=== PATIENT | female | born 1955 | race Hispanic/Latino ===

== ENCOUNTER 2017-03-25 03:16 | Emergency (ER) | payer MEDICARE, OTHER ==
[2017-03-25] MEDS ORDERED: ATIVAN IV ONE (03:53)
[2017-03-25] MEDS ORDERED: ZOFRAN IV ONE (03:53)
[2017-03-25] MEDS ORDERED: NACL 0.9% 500 ML 500 ML IV ONE (03:53)
--- NOTE | 2017-03-25 03:55 | Emergency Department Report ---
ED General Adult HPI - General Chief complaint: Weakness Stated complaint: GENERAL WEAKNESS Time Seen by Provider: 03/25/17 03:44 Source: patient, EMS (ems notes not available at time of chart dictation), RN notes reviewed Mode of arrival: Stretcher Limitations: No Limitations - History of Present Illness Initial comments: This is a 61-year-old female. The patient is previously unknown to this provider. Past medical history includes GERD, bipolar, hypothyroid, high cholesterol, anxiety. Patient is brought to the hospital by EMS for weakness, fatigue, generalized weakness. Her symptoms have been going on since January. They are constant. They have no exacerbating or relieving factors. Patient complains of generalized tremors, these have been present for years, patient describes nausea , patient describes lack of appetite and does not want to eat. The patient is not homicidal or suicidal, does not have a plan to overdose. The patient is requesting apple juice and ice chips, patient denies chest pain, patient denies severe shortness of breath, patient denies focal extremity weakness/numbness. Patient endorses that she's had a few mechanical falls over the past few weeks. She reports falling a few go, and hitting her head. -: Gradual Consistency: constant Improves with: none Worsens with: none Associated Symptoms: loss of appetite, malaise, weakness. denies: confusion, chest pain, cough, diaphoresis - Related Data Previous Rx's Medication Instructions Recorded Last Taken Type Ondansetron [Zofran Odt] 4 mg PO Q8HR PRN #20 tab.rapdis 03/25/17 Unknown Rx Allergies Allergy/AdvReac Type Severity Reaction Status Date / Time Penicillins Allergy Unknown Verified 03/25/17 04:00 ED Review of Systems ROS: Stated complaint: GENERAL WEAKNESS Other details as noted in HPI Constitutional: malaise, weakness Eyes: eye discharge. denies: eye pain, vision change ENT: denies: congestion Respiratory: denies: cough Cardiovascular: denies: chest pain Gastrointestinal: vomiting Genitourinary: as per HPI. denies: dysuria Musculoskeletal: arthralgia, myalgia Neurological: weakness Psychiatric: denies: homicidal thoughts, suicidal thoughts ED Past Medical Hx - Medications Home Medications: Home Medications Medication Instructions Recorded Confirmed Last Taken Type Ondansetron [Zofran Odt] 4 mg PO Q8HR PRN #20 tab.rapdis 03/25/17 Unknown Rx ED Physical Exam - General Limitations: Other (patient is very anxious) General appearance: alert, in distress - Head Head exam: Present: atraumatic, normocephalic - Eye Eye exam: Present: normal appearance, PERRL, EOMI, conjunctival injection ( patient has conjunctival discharge noted. Patient reports that it has been there for months.), other (visual acuity intact to finger counting, color perception, reading at a close distance). Absent: nystagmus - ENT ENT exam: Present: normal exam, normal orophraynx, mucous membranes moist, normal external ear exam - Neck Neck exam: Present: normal inspection, full ROM - Respiratory Respiratory exam: Present: normal lung sounds bilaterally. Absent: respiratory distress - Cardiovascular Cardiovascular Exam: Present: normal rhythm, tachycardia, normal heart sounds. Absent: systolic murmur, diastolic murmur, rubs, gallop - GI/Abdominal GI/Abdominal exam: Present: soft, normal bowel sounds. Absent: distended, tenderness, guarding, rebound, rigid, pulsatile mass - Extremities Exam Extremities exam: Present: normal inspection, full ROM, normal capillary refill. Absent: pedal edema, joint swelling, calf tenderness - Back Exam Back exam: Present: normal inspection, full ROM. Absent: tenderness, CVA tenderness (R), paraspinal tenderness, vertebral tenderness - Neurological Exam Neurological exam: Present: alert, oriented X3, CN II-XII intact, other ( Extraocular movements intact. Tongue midline. No facial droop. Facial sensation intact to light touch in the V1, V2, V3 distribution bilaterally. 5 and 5 strength in 4 extremities.. Sensation is intact to light touch in 4 extremities.). Absent: motor sensory deficit - Psychiatric Psychiatric exam: Present: anxious. Absent: homicidal ideation, suicidal ideation - Skin Skin exam: Present: warm, dry, intact, normal color. Absent: rash ED Course Vital Signs 03/25/17 03/25/17 03:45 04:00 Temperature 98.3 F Pulse Rate 100 H 88 Respiratory 18 13 Rate Blood Pressure 172/100 134/83 O2 Sat by Pulse 95 97 Oximetry - Reevaluation(s) Reevaluation #1: 03/25/17 04:32 Differential diagnosis, including without limited to: Anxiety, dehydration, urinary tract infection, intracranial injury, electrolyte derangement Assessment and plan: 61-year-old female who reports a few weeks to a few months of nonspecific constitutional symptoms. Objectively speaking, the patient is afebrile, slightly hypertensive, has a nonfocal neurologic examination, has chronic tremors as per history, and does not require 1013 based on her evaluation. We will check basic laboratory studies, EKG, urinalysis, x-ray of the chest, noncontrast CT scan of the brain based on past history of fall. We'll reassess. Reevaluation #2: 03/25/17 05:43 Patient tolerated liquid feeds. Laboratory studies pending. Radiology studies pending. Care will be transferred to the oncoming physician, Dr. Jhon Sagastume to follow-up on patient's laboratory studies, diagnostics. Assuming no abnormalities noted, I would consider the patient medically suitable to be discharged to follow-up in outpatient primary care doctor. Reevaluation #3: 03/26/17 13:41 Laboratory studies reviewed and are unremarkable for any emergent condition, patient found to have incidental thyroid abnormalities, and this can be followed up by an outpatient primary care doctor. Noncontrast CT scan of the brain demonstrated incidental findings, likely chronic in nature. Patient is suitable to follow up with outpatient primary care, and she was discharged as per my plan. ED Medical Decision Making - Lab Data Result diagrams: 03/25/17 05:07 03/25/17 05:07 Vital Signs 03/25/17 03:45 Temperature 98.3 F Pulse Rate 100 H Respiratory 18 Rate Blood Pressure 172/100 O2 Sat by Pulse 95 Oximetry Vital Signs 03/25/17 03/25/17 03:45 04:00 Temperature 98.3 F Pulse Rate 100 H 88 Respiratory 18 13 Rate Blood Pressure 172/100 134/83 O2 Sat by Pulse 95 97 Oximetry Labs 03/25/17 03/25/17 03/25/17 04:48 05:07 05:07 WBC 9.5 RBC 4.46 Hgb 13.9 Hct 40.9 MCV 92 MCH 31 MCHC 34 RDW 14.9 Plt Count 205 Sodium 138 Potassium 3.5 L Chloride 101.0 Carbon Dioxide 21 L Anion Gap 20 BUN 13 Creatinine 1.0 Estimated GFR 56 BUN/Creatinine Ratio 13 Glucose 94 Calcium 8.3 L Magnesium 1.80 Total Creatine Kinase 185 H TSH Free T4 Urine Color Yellow Urine Turbidity Clear Urine pH 5.0 Ur Specific [place] 1.006 Urine Protein <15 mg/dl Urine Glucose (UA) Neg Urine Ketones Neg Urine Blood Sm Urine Nitrite Neg Urine Bilirubin Neg Urine Urobilinogen < 2.0 Ur Leukocyte Esterase Neg Urine WBC (Auto) 1.0 Urine RBC (Auto) 2.0 U Epithel Cells (Auto) < 1.0 Urine Mucus Few Salicylates Acetaminophen Valproic Acid 03/25/17 03/25/17 03/25/17 05:07 05:07 05:07 WBC RBC Hgb Hct MCV MCH MCHC RDW Plt Count Sodium Potassium Chloride Carbon Dioxide Anion Gap BUN Creatinine Estimated GFR BUN/Creatinine Ratio Glucose Calcium Magnesium Total Creatine Kinase TSH 6.360 H Free T4 1.45 Urine Color Urine Turbidity Urine pH Ur Specific [place] Urine Protein Urine Glucose (UA) Urine Ketones Urine Blood Urine Nitrite Urine Bilirubin Urine Urobilinogen Ur Leukocyte Esterase Urine WBC (Auto) Urine RBC (Auto) U Epithel Cells (Auto) Urine Mucus Salicylates < 0.3 L Acetaminophen Valproic Acid < 2.8 L 03/25/17 05:07 WBC RBC Hgb Hct MCV MCH MCHC RDW Plt Count Sodium Potassium Chloride Carbon Dioxide Anion Gap BUN Creatinine Estimated GFR BUN/Creatinine Ratio Glucose Calcium Magnesium Total Creatine Kinase TSH Free T4 Urine Color Urine Turbidity Urine pH Ur Specific [place] Urine Protein Urine Glucose (UA) Urine Ketones Urine Blood Urine Nitrite Urine Bilirubin Urine Urobilinogen Ur Leukocyte Esterase Urine WBC (Auto) Urine RBC (Auto) U Epithel Cells (Auto) Urine Mucus Salicylates Acetaminophen < 15.0 Valproic Acid - EKG Data 03/25/17 04:33 Normal sinus, 88 bpm, normal axis, QTC prolonged, 455 ms, abnormal EKG, not morphologically consistent with ST elevation myocardial infarction - Radiology Data Radiology results: pending, report reviewed, image reviewed Critical care attestation.: If time is entered above; I have spent that time in minutes in the direct care of this critically ill patient, excluding procedure time. ED Disposition Clinical Impression: General medical exam Disposition: [id number] TO HOME OR SELFCARE Is pt being admited?: No Does the pt Need Aspirin: No Condition: Good Additional Instructions: Follow-up with the primary care doctor within the next week. Follow-up with your psychiatrist within the next week. Return to the ER right away with fevers , chills, lethargy, irritability, projectile vomiting, change in mental status, inability to tolerate liquid feeds. Follow up with any of the listed neurology specialist within the next month as well for chronic upper extremity tremors. Prescriptions: Ondansetron [Zofran Odt] 4 mg PO Q8HR PRN #20 tab.rapdis PRN Reason: Nausea Referrals: KRISTINE HUANG MD [Primary Care Provider] - 3-5 Days RA LEMON MD [Staff Physician] - 3-5 Days SIMIN MAY MD [Staff Physician] - 3-5 Days BUSTER ZHANG MD [Referring] - 3-5 Days
[2017-03-25 05:17] LABS: Bilirubin,Urine NEG (Negative); Blood,Urine SM (Negative); Color,Urine Yellow (Yellow); Mucus,Urine FEW /HPF; Nitrite,Urine NEG (Negative); Protein,Urine <15 mg/dL mg/dL (Negative); Urobilinogen,Urine < 2.0 mg/dL (<2.0)
[2017-03-25 05:21] VITALS: BP 134/83
[2017-03-25 05:51] LABS: Hematocrit 40.9 % (30.3-42.9); Hemoglobin 13.9 gm/dl (10.1-14.3); Mean Corpuscular HGB Conc 34 % (30-34); Mean Corpuscular Hemoglobin 31 pg (28-32); Mean Corpuscular Volume 92 fl (79-97); Platelet Count 205 K/mm3 (140-440); Red Blood Count 4.46 M/mm3 (3.65-5.03); Red Cell Distribution Width 14.9 % (13.2-15.2)
[2017-03-25 06:10] LABS: Calcium 8.3 mg/dL (8.4-10.2); Magnesium 1.8 mg/dL (1.7-2.3)
--- NOTE | 2017-03-25 06:10 | Cat Scan Report ---
FINAL REPORT EXAM: CT HEAD/BRAIN WO CON HISTORY: fall TECHNIQUE: CT imaging is acquired through the brain without contrast. Transaxial reformations are provided. PRIORS: None. FINDINGS: Ventricles and CSF spaces are proportionately enlarged, consistent with parenchymal atrophy. Scattered deep and subcortical white matter hypodense foci are confluent in some areas and are compatible with microvascular angiopathy. No acute intracranial hemorrhage or mass effect. No acute skull fracture identified. There is dense sclerotic and ground-glass expansion of the skullbase extending throughout large portions of the right frontal, parietal and temporal bones. No acute findings in the paranasal sinuses or mastoid air cells. IMPRESSION: No acute intracranial abnormality. There are chronic sequela of atrophy and microvascular angiopathy. Chronic dense sclerotic and "ground-glass" expansion of the skullbase may be secondary to fibrous dysplasia, Paget's disease, or metastatic disease. Clinical correlation is requested. Consider routine follow-up skeletal survey if these findings have not been previously documented.
--- NOTE | 2017-03-25 06:32 | Emergency Department Report ---
Blank Doc - Documentation Documentation: I was asked by my colleague to follow up on the patient's CT head results and the labs with the plan that if everything is normal that she is safe to go home and discharge instructions and Zofran ODT have been written for her. Labs are unremarkable. CT of the head does not show any bleed, shift, mass, ischemia. There are some osseous abnormalities in the posterior skull that include a differential of fibrous dysplasia, Paget's disease of the bone or metastasis, among others. 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 She is aware of these incidental findings and will follow up with her primary care doctor as soon as possible. She will return to the ER with any worsening of her symptoms or any acute distress.
== END 2017-03-25 07:04 | disposition home or self-care (01) ==
LOC: ED 03:16
DX: R53.1 Weakness (principal); R53.83 Other fatigue; R63.0 Anorexia; Z88.0 Allergy status to penicillin
CPT/HCPCS: 36415; 70450; 80048; 80164; 81001; 82550; 83735; 84439; 84443; 85027; 93005; 93010; 96374; 96375; 99284; G0480; J2060; J2405; J7040; 80320

== ENCOUNTER 2017-04-26 05:39 | Emergency (ER) | payer MEDICARE ==
[2017-04-26 08:31] LABS: Hematocrit 47.3 % (30.3-42.9); Hemoglobin 15.9 gm/dl (10.1-14.3); Mean Corpuscular HGB Conc 34 % (30-34); Mean Corpuscular Hemoglobin 32 pg (28-32); Mean Corpuscular Volume 94 fl (79-97); Platelet Count 177 K/mm3 (140-440); Red Blood Count 5.03 M/mm3 (3.65-5.03); Red Cell Distribution Width 15.2 % (13.2-15.2)
[2017-04-26 08:50] LABS: Albumin 4.4 g/dL (3.9-5); Calcium 8.9 mg/dL (8.4-10.2)
[2017-04-26 08:57] LABS: Bacteria,Urine 1+ /HPF (Negative); Bilirubin,Urine NEG (Negative); Blood,Urine MOD (Negative); Color,Urine Amber (Yellow); Mucus,Urine 2+ /HPF; Nitrite,Urine POS (Negative)
[2017-04-26 10:16] LABS: Anisocytosis Few; Band Neutrophils # (Manual) 0.4 K/mm3; Basophils % (Manual) 0 % (0.0-1.8); Eosinophils % (Manual) 0 % (0.0-4.3); Total Cells Counted 100
[2017-04-26] MEDS ORDERED: ZOFRAN IV ONE (13:18)
[2017-04-26] MEDS ORDERED: NACL 0.9% 1000 ML 1,000 ML IV ONE (13:18)
[2017-04-26] MEDS ORDERED: MORPHINE IV ONE (13:18)
--- NOTE | 2017-04-26 13:41 | Emergency Department Report ---
HPI - General Chief Complaint: Headache Time Seen by Provider: 04/26/17 13:05 - HPI HPI: [place] 7 The patient is a 61-year-old female presenting with a chief complaint of headache. Patient states for one day she's had a headache until region in addition to frequent nausea and vomiting. The patient states earlier today she had an episode of epistaxis. Patient denies any preceding trauma or fever. The patient gives her pain a score of 7/10. 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 - Surgical History Past Surgical History?: Yes Additional Surgical History: back, right hip, right arm, brain - Family History Family history: no significant - Social History Smoking Status: Current Every Day Smoker (1/2 pack per day) Substance Use Type: Alcohol (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), Prescribed - Medications Home Medications: Home Medications Medication Instructions Recorded Confirmed Last Taken Type Ondansetron [Zofran Odt] 4 mg PO Q8HR PRN #20 tab.rapdis 03/25/17 Unknown Rx Butalb/Acetamin/Caff 50-325-40 2 tab PO Q8HR PRN #20 tablet 04/26/17 Unknown Rx [Fioricet] Ciprofloxacin HCl [Ciprofloxacin 500 mg PO BID #14 tablet 04/26/17 Unknown Rx TAB] Gentamicin 0.3% Ophth Soln 2 drops OD Q4H #1 bottle 04/26/17 Unknown Rx [Gentamicin 0.3%] ED Review of Systems ROS: Stated complaint: HEADACHE Other details as noted in HPI Constitutional: denies: fever ENT: epistaxis Gastrointestinal: nausea, vomiting Neurological: headache Physical Exam - Physical Exam Vital Signs: Vital Signs 04/26/17 04/26/17 05:50 07:32 Temperature 98.3 F 98.3 F Pulse Rate 113 H 109 H Respiratory 20 20 Rate Blood Pressure 171/75 171/75 O2 Sat by Pulse 94 94 Oximetry Laboratory Tests 04/26/17 04/26/17 04/26/17 07:55 07:55 08:31 WBC 10.2 RBC 5.03 Hgb 15.9 H Hct 47.3 H MCV 94 MCH 32 MCHC 34 RDW 15.2 Plt Count 177 [place] % (Auto) Pharmacist Technician Add Manual Diff Complete Total Counted 100 Seg Neuts % (Manual) 64.0 Band Neutrophils % 4.0 Lymphocytes % (Manual) 20.0 Reactive Lymphs % (Man) 0 Monocytes % (Manual) 12.0 H Eosinophils % (Manual) 0 Basophils % (Manual) 0 Metamyelocytes % 0 Myelocytes % 0 Promyelocytes % 0 Blast Cells % 0 Nucleated RBC % Not Reportable Seg Neutrophils # Man 6.5 Band Neutrophils # 0.4 Lymphocytes # (Manual) 2.0 Abs React Lymphs (Man) 0.0 Monocytes # (Manual) 1.2 H Eosinophils # (Manual) 0.0 Basophils # (Manual) 0.0 Metamyelocytes # 0.0 Myelocytes # 0.0 Promyelocytes # 0.0 Blast Cells # 0.0 WBC Morphology Not Reportable Hypersegmented Neuts Not Reportable Hyposegmented Neuts Not Reportable Hypogranular Neuts Not Reportable Smudge Cells Not Reportable Toxic Granulation Not Reportable Toxic Vacuolation Not Reportable Dohle Bodies Not Reportable Pelger-Huet Anomaly Not Reportable Evon Rods Not Reportable Platelet Estimate Not Reportable Clumped Platelets Not Reportable Plt Clumps, EDTA Not Reportable Large Platelets Not Reportable Giant Platelets Not Reportable Platelet Satelliting Not Reportable Plt Morphology Comment Not Reportable RBC Morphology Not Reportable Dimorphic RBCs Not Reportable Polychromasia Not Reportable Hypochromasia Not Reportable Poikilocytosis Not Reportable Anisocytosis Few Microcytosis Not Reportable Macrocytosis Not Reportable Spherocytes Not Reportable Pappenheimer Bodies Not Reportable Sickle Cells Not Reportable Target Cells Not Reportable Tear Drop Cells Not Reportable Ovalocytes Not Reportable Helmet Cells Not Reportable [place] Bodies Not Reportable [place] Rings Not Reportable [place] Cells Not Reportable Bite Cells Not Reportable Crenated Cell Not Reportable Elliptocytes Not Reportable Acanthocytes (Spur) Not Reportable Rouleaux Not Reportable Hemoglobin C Crystals Not Reportable Schistocytes Not Reportable Malaria parasites Not Reportable Stephane Bodies Not Reportable Hem Pathologist Commnt No Sodium 140 Potassium 4.4 Chloride 100.6 Carbon Dioxide 24 Anion Gap 20 BUN 18 H Creatinine 1.2 Estimated GFR 45 BUN/Creatinine Ratio 15 Glucose 89 Calcium 8.9 Total Bilirubin 0.40 AST 19 ALT 6 L Alkaline Phosphatase 102 Total Protein 7.9 Albumin 4.4 Albumin/Globulin Ratio 1.3 Lipase 52 Urine Color [place] Urine Turbidity Clear Urine pH 5.0 Ur Specific [place] 1.027 Urine Protein 100 mg/dl Urine Glucose (UA) Neg Urine Ketones Tr Urine Blood Mod Urine Nitrite Pos Urine Bilirubin Neg Urine Urobilinogen 2.0 Ur Leukocyte Esterase Sm Urine WBC (Auto) 15.0 H Urine RBC (Auto) 2.0 U Epithel Cells (Auto) 19.0 H Urine Bacteria (Auto) 1+ Urine Mucus 2+ Physical Exam: GENERAL: The patient is well-developed well-nourished female lying on stretcher not appearing to be in acute distress. [] HEENT: Normocephalic. Atraumatic. Extraocular motions are intact. White discharge/matting of right eyelids. Sclera clear. No hypopyon seen NECK: Supple. Trachea midline CHEST/LUNGS: Clear to auscultation. There is no respiratory distress noted. HEART/CARDIOVASCULAR: Regular. There is no tachycardia. There is no gallop rub or murmur. ABDOMEN: Abdomen is soft, nontender. Patient has normal bowel sounds. There is no abdominal distention. SKIN: There is no rash. There is no edema. There is no diaphoresis. NEURO: The patient is awake, alert, and oriented. The patient is cooperative. The patient has no focal neurologic deficits. The patient has normal speech. Cranial nerves II through XII grossly intact, no drift MUSCULOSKELETAL: There is no evidence of acute injury. ED Course Vital Signs 04/26/17 04/26/17 05:50 07:32 Temperature 98.3 F 98.3 F Pulse Rate 113 H 109 H Respiratory 20 20 Rate Blood Pressure 171/75 171/75 O2 Sat by Pulse 94 94 Oximetry ED Medical Decision Making - Lab Data Result diagrams: 04/26/17 07:55 04/26/17 07:55 Laboratory Tests 04/26/17 04/26/17 04/26/17 07:55 07:55 08:31 WBC 10.2 RBC 5.03 Hgb 15.9 H Hct 47.3 H MCV 94 MCH 32 MCHC 34 RDW 15.2 Plt Count 177 [place] % (Auto) Pharmacist Technician Add Manual Diff Complete Total Counted 100 Seg Neuts % (Manual) 64.0 Band Neutrophils % 4.0 Lymphocytes % (Manual) 20.0 Reactive Lymphs % (Man) 0 Monocytes % (Manual) 12.0 H Eosinophils % (Manual) 0 Basophils % (Manual) 0 Metamyelocytes % 0 Myelocytes % 0 Promyelocytes % 0 Blast Cells % 0 Nucleated RBC % Not Reportable Seg Neutrophils # Man 6.5 Band Neutrophils # 0.4 Lymphocytes # (Manual) 2.0 Abs React Lymphs (Man) 0.0 Monocytes # (Manual) 1.2 H Eosinophils # (Manual) 0.0 Basophils # (Manual) 0.0 Metamyelocytes # 0.0 Myelocytes # 0.0 Promyelocytes # 0.0 Blast Cells # 0.0 WBC Morphology Not Reportable Hypersegmented Neuts Not Reportable Hyposegmented Neuts Not Reportable Hypogranular Neuts Not Reportable Smudge Cells Not Reportable Toxic Granulation Not Reportable Toxic Vacuolation Not Reportable Dohle Bodies Not Reportable Pelger-Huet Anomaly Not Reportable Evon Rods Not Reportable Platelet Estimate Not Reportable Clumped Platelets Not Reportable Plt Clumps, EDTA Not Reportable Large Platelets Not Reportable Giant Platelets Not Reportable Platelet Satelliting Not Reportable Plt Morphology Comment Not Reportable RBC Morphology Not Reportable Dimorphic RBCs Not Reportable Polychromasia Not Reportable Hypochromasia Not Reportable Poikilocytosis Not Reportable Anisocytosis Few Microcytosis Not Reportable Macrocytosis Not Reportable Spherocytes Not Reportable Pappenheimer Bodies Not Reportable Sickle Cells Not Reportable Target Cells Not Reportable Tear Drop Cells Not Reportable Ovalocytes Not Reportable Helmet Cells Not Reportable [place] Bodies Not Reportable [place] Rings Not Reportable [place] Cells Not Reportable Bite Cells Not Reportable Crenated Cell Not Reportable Elliptocytes Not Reportable Acanthocytes (Spur) Not Reportable Rouleaux Not Reportable Hemoglobin C Crystals Not Reportable Schistocytes Not Reportable Malaria parasites Not Reportable Stephane Bodies Not Reportable Hem Pathologist Commnt No Sodium 140 Potassium 4.4 Chloride 100.6 Carbon Dioxide 24 Anion Gap 20 BUN 18 H Creatinine 1.2 Estimated GFR 45 BUN/Creatinine Ratio 15 Glucose 89 Calcium 8.9 Total Bilirubin 0.40 AST 19 ALT 6 L Alkaline Phosphatase 102 Total Protein 7.9 Albumin 4.4 Albumin/Globulin Ratio 1.3 Lipase 52 Urine Color [place] Urine Turbidity Clear Urine pH 5.0 Ur Specific [place] 1.027 Urine Protein 100 mg/dl Urine Glucose (UA) Neg Urine Ketones Tr Urine Blood Mod Urine Nitrite Pos Urine Bilirubin Neg Urine Urobilinogen 2.0 Ur Leukocyte Esterase Sm Urine WBC (Auto) 15.0 H Urine RBC (Auto) 2.0 U Epithel Cells (Auto) 19.0 H Urine Bacteria (Auto) 1+ Urine Mucus 2+ - Radiology Data Radiology results: report reviewed (CT head), image reviewed (CT head) CT HEAD WITHOUT CONTRAST: HISTORY: Headache, nausea and vomiting. TECHNIQUE: Sequential 2.5mm CT images. COMPARISON: 03/25/17. FINDINGS: Mild diffuse cortical volume loss is unchanged since 03/25/17. There is no evidence for hemorrhage, mass, extra-axial fluid collection or large area of acute ischemia. 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 Ventricular size remains within normal limits. The basal cisterns are clear. Bony expansion and groundglass density throughout the skull base and right frontal bone is stable. 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 IMPRESSION: No acute intracranial process. Chronic findings as described above which are unchanged since 03/25/17. Transcribed By: TTR Dictated By: JOSH WALLIS JR, MD Electronically Authenticated By: JOSH WALLIS JR, MD Signed Date/Time: 04/26/17 1444 DD/ 1441 TD/TT: 04/26/17 1444 - Differential Diagnosis conjunctivitis, ICH, intracranial mass Critical care attestation.: If time is entered above; I have spent that time in minutes in the direct care of this critically ill patient, excluding procedure time. ED Disposition Clinical Impression: Headache, Nausea & vomiting, UTI (urinary tract infection), Conjunctivitis Disposition: - TO HOME OR SELFCARE Is pt being admited?: No Does the pt Need Aspirin: No Condition: Stable Instructions: Conjunctivitis (ED), Acute Headache (ED) Prescriptions: Butalb/Acetamin/Caff 50-325-40 [Fioricet] 2 tab PO Q8HR PRN #20 tablet PRN Reason: Headache Ciprofloxacin HCl [Ciprofloxacin TAB] 500 mg PO BID #14 tablet Gentamicin 0.3% Oph Soln [Gentamicin 0.3%] 2 drops OD Q4H #1 bottle Referrals: NOLAN SKINNER MD [Primary Care Provider] - 3-5 Days SIMIN MAY MD [Staff Physician] - 3-5 Days JAIME TORRES MD [Staff Physician] - 3-5 Days Time of Disposition: 15:28
--- NOTE | 2017-04-26 14:50 | Cat Scan Report ---
CT HEAD WITHOUT CONTRAST: HISTORY: Headache, nausea and vomiting. TECHNIQUE: Sequential 2.5mm CT images. COMPARISON: 03/25/17. FINDINGS: Mild diffuse cortical volume loss is unchanged since 03/25/17. There is no evidence for hemorrhage, mass, extra-axial fluid collection or large area of acute ischemia. 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 Ventricular size remains within normal limits. The basal cisterns are clear. Bony expansion and groundglass density throughout the skull base and right frontal bone is stable. 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 IMPRESSION: No acute intracranial process. Chronic findings as described above which are unchanged since 03/25/17.
[2017-04-26 15:18] VITALS: BP 140/67
[2017-04-26] MEDS ORDERED: ZOFRAN ONE (16:23)
== END 2017-04-26 16:41 | disposition home or self-care (01) ==
LOC: ED 05:39
DX: H10.9 Unspecified conjunctivitis (principal); N39.0 Urinary tract infection, site not specified; R51 Headache; K21.9 Gastro-esophageal reflux disease without esophagitis; E03.9 Hypothyroidism, unspecified; F17.200 Nicotine dependence, unspecified, uncomplicated
CPT/HCPCS: 36415; 70450; 80053; 81001; 83690; 85007; 85025; 96361; 96374; 96375; 99284; J2270; J2405; J7030

== ENCOUNTER 2017-04-27 04:11 | Emergency (ER) | payer MEDICARE ==
[2017-04-27 06:49] VITALS: BP 156/92
== END 2017-04-27 22:00 | disposition left against medical advice (07) ==
LOC: ED 04:11
DX: F29 Unspecified psychosis not due to a substance or known physiological condition (principal); Z53.21 Procedure and treatment not carried out due to patient leaving prior to being seen by health care provider

== ENCOUNTER 2017-04-28 08:12 | Emergency (ER) | payer MEDICARE ==
[2017-04-28 09:55] LABS: Bacteria,Urine 3+ /HPF (Negative); Bilirubin,Urine NEG (Negative); Blood,Urine MOD (Negative); Color,Urine Yellow (Yellow); Mucus,Urine 1+ /HPF; Nitrite,Urine NEG (Negative)
[2017-04-28 10:01] LABS: Amphetamine Screen,Urine PRESUMPTIVE NEGATIVE; Benzodiazepines Screen,Urine PRESUMPTIVE NEGATIVE; Cannabinoid Screen,Urine PRESUMPTIVE NEGATIVE; Cocaine Screen,Urine PRESUMPTIVE NEGATIVE; Methadone Screen,Urine PRESUMPTIVE NEGATIVE; Opiate Screen,Urine PRESUMPTIVE NEGATIVE
[2017-04-28 10:05] LABS: Hematocrit 42.9 % (30.3-42.9); Hemoglobin 14.4 gm/dl (10.1-14.3); Mean Corpuscular HGB Conc 34 % (30-34); Mean Corpuscular Hemoglobin 32 pg (28-32); Mean Corpuscular Volume 94 fl (79-97); Platelet Count 120 K/mm3 (140-440); Red Blood Count 4.55 M/mm3 (3.65-5.03)
[2017-04-28 10:14] LABS: Calcium 8.8 mg/dL (8.4-10.2)
--- NOTE | 2017-04-28 10:16 | XRay Report ---
ROUTINE CHEST, TWO VIEWS: SOB. PA and lateral views demonstrate the heart and mediastinal contour to be of normal size and shape. The lungs are clear and fully expanded and the soft tissues and bony structures are normal. IMPRESSION: Normal study.
[2017-04-28 11:06] LABS: Large Platelets Rare; Platelet Estimate Consistent w Auto; Stomatocytes 1+; Total Cells Counted 100
--- NOTE | 2017-04-28 17:12 | Emergency Department Report ---
ED Psych HPI - General Chief Complaint: Dyspnea/Respdistress Stated Complaint: MENTAL HEALTH EVALUATION Time Seen by Provider: 04/28/17 16:57 Source: patient Mode of arrival: Ambulatory - History of Present Illness Initial Comments: Patient is a 61-year-old female who is presenting with suicidal thoughts. Patient has been depressed was here to discuss her mental health was deemed not suicidal originally she was here just for depression before leaving the hospital patient stated she felt that she would lie outside in traffic with the hopes that a car would run over her. The patient does state that she feels depressed and hopeless she's been having issues with family and with money and patient is suicidal at this time. Patient denies any homicidal thoughts or hallucinations at this time - Related Data Previous Rx's Medication Instructions Recorded Last Taken Type Ondansetron [Zofran Odt] 4 mg PO Q8HR PRN #20 tab.rapdis 03/25/17 Unknown Rx Butalb/Acetamin/Caff 50-325-40 2 tab PO Q8HR PRN #20 tablet 04/26/17 Unknown Rx [Fioricet] Ciprofloxacin HCl [Ciprofloxacin 500 mg PO BID #14 tablet 04/26/17 Unknown Rx TAB] Gentamicin 0.3% Ophth Soln 2 drops OD Q4H #1 bottle 04/26/17 Unknown Rx [Gentamicin 0.3%] Promethazine [Phenergan TAB] 25 mg PO Q6HR PRN #20 tab 04/26/17 Unknown Rx Promethazine [Phenergan] 25 mg [place] Q6HR PRN #5 supp.rect 04/26/17 Unknown Rx Allergies Allergy/AdvReac Type Severity Reaction Status Date / Time Penicillins Allergy Unknown Verified 03/25/17 04:00 ED Review of Systems ROS: Stated complaint: MENTAL HEALTH EVALUATION Other details as noted in HPI Comment: All other systems reviewed and negative ED Past Medical Hx - Past Medical History Previous Medical History?: Yes Hx Pulmonary Embolism: Yes Hx GERD: Yes Hx Psychiatric Treatment: Yes (Bipolar) Additional medical history: hypothyroid, hyperlipidemia, esophagus problems, ETOH abuse and in recovery - Surgical History Past Surgical History?: Yes Additional Surgical History: back, right hip, right arm, brain - Social History Smoking Status: Current Every Day Smoker Substance Use Type: None - Medications Home Medications: Home Medications Medication Instructions Recorded Confirmed Last Taken Type Ondansetron [Zofran Odt] 4 mg PO Q8HR PRN #20 tab.rapdis 03/25/17 Unknown Rx Butalb/Acetamin/Caff 50-325-40 2 tab PO Q8HR PRN #20 tablet 04/26/17 Unknown Rx [Fioricet] Ciprofloxacin HCl [Ciprofloxacin 500 mg PO BID #14 tablet 04/26/17 Unknown Rx TAB] Gentamicin 0.3% Ophth Soln 2 drops OD Q4H #1 bottle 04/26/17 Unknown Rx [Gentamicin 0.3%] Promethazine [Phenergan TAB] 25 mg PO Q6HR PRN #20 tab 04/26/17 Unknown Rx Promethazine [Phenergan] 25 mg [place] Q6HR PRN #5 supp.rect 04/26/17 Unknown Rx ED Physical Exam - General Limitations: No Limitations General appearance: alert, in no apparent distress - Head Head exam: Present: atraumatic, normocephalic - Eye Eye exam: Present: normal appearance - ENT ENT exam: Present: mucous membranes moist - Neck Neck exam: Present: normal inspection - Respiratory Respiratory exam: Present: normal lung sounds bilaterally. Absent: respiratory distress - Cardiovascular Cardiovascular Exam: Present: regular rate, normal rhythm. Absent: systolic murmur, diastolic murmur, rubs, gallop - GI/Abdominal GI/Abdominal exam: Present: soft, normal bowel sounds - Extremities Exam Extremities exam: Present: normal inspection - Back Exam Back exam: Present: normal inspection - Neurological Exam Neurological exam: Present: alert, oriented X3 - Psychiatric Psychiatric exam: Present: normal affect, depressed - Skin Skin exam: Present: warm, dry, intact, normal color. Absent: rash ED Course Vital Signs 04/28/17 04/28/17 08:38 17:55 Temperature 98.1 F Pulse Rate 91 H Respiratory 16 18 Rate Blood Pressure 149/80 O2 Sat by Pulse 90 98 Oximetry ED Medical Decision Making - Lab Data Result diagrams: 04/28/17 09:27 04/28/17 09:27 - Medical Decision Making Patient is a 61-year-old female who presented with suicidal ideations patient was placed on 1013 beat will be seen by psych firer low pressure and transferred to a psych facility Critical care attestation.: If time is entered above; I have spent that time in minutes in the direct care of this critically ill patient, excluding procedure time. ED Disposition Clinical Impression: Suicidal ideation Disposition: [id number]/TX-65 PSY HOSP/PSY UNIT Is pt being admited?: No Does the pt Need Aspirin: No Condition: Stable Referrals: PRIMARY CARE, [Primary Care Provider] - 3-5 Days
[2017-04-29 13:52] VITALS: BP 127/72
--- NOTE | 2017-04-29 15:41 | Consultation ---
History of Present Illness - Reason for Consult Consult date: 04/29/17 Reason for consult: Mental Health Evaluation Requesting physician: JENNIFER MEJIA - Chief Complaint Chief complaint: "When can I leave" - History of Present Psychiatric Illness Patient is a 61-year-old female who is presenting with suicidal thoughts. Today the patient is calm during the assessment. The patient was asked several questions, her answers were not logical. She did admit to being suicidal, but denies a plan. She could not elaborate why she is suicidal when asked. She stated residing at nursing home. She was asked about any abuse at her nursing home, she stated, "no." This patient is a poor historian. Medications and Allergies Allergies Allergy/AdvReac Type Severity Reaction Status Date / Time Penicillins Allergy Unknown Verified 03/25/17 04:00 Home Medications Medication Instructions Recorded Confirmed Last Taken Type Ondansetron [Zofran Odt] 4 mg PO Q8HR PRN #20 tab.rapdis 03/25/17 04/28/17 Unknown Rx Butalb/Acetamin/Caff 50-325-40 2 tab PO Q8HR PRN #20 tablet 04/26/17 04/28/17 Unknown Rx [Fioricet] Ciprofloxacin HCl [Ciprofloxacin 500 mg PO BID #14 tablet 04/26/17 04/28/17 Unknown Rx TAB] Gentamicin 0.3% Ophth Soln 2 drops OD Q4H #1 bottle 04/26/17 04/28/17 Unknown Rx [Gentamicin 0.3%] Promethazine [Phenergan TAB] 25 mg PO Q6HR PRN #20 tab 04/26/17 04/28/17 Unknown Rx Past psychiatric history - Past Medical History Past Medical History: GERD Past Surgical History: No surgical history - past Psychiatric treatment and history psychiatric treatment history: Multiple inpatient psy settings. Denies a [facility] psy hx. - Social History Social history: other (Reside at a nursing home) Mental Status Exam - Vital signs Last Vital Signs Temp 98.2 F 04/29/17 10:00 Pulse 82 04/29/17 10:00 Resp 20 04/29/17 13:52 BP 127/72 04/29/17 10:00 Pulse Ox 97 04/29/17 13:52 - Exam Narrative exam: MSE: Appearance: calm Behavior: regular eye contact Speech: regular rate and tone Mood: "okay" Affect: flat Thought Process: tangential Thought Content: admit to being suicidal, disorganized Motor Activity: ambulatory, mild tremors Cognition: A/O x3 Insight: poor Judgment: poor Results Result Diagrams: 04/28/17 09:27 04/28/17 09:27 All other labs normal. Assessment and Plan Assessment and plan: Impression: Unspecified Mood DO. Today the patient is calm during the assessment. DDx: R/O Bipolar DO, R/O MDD Recommendation/Plan: Continue 1013 with placement to [facility] today.
== END 2017-04-29 13:58 ==
LOC: EEVIPCON 08:12 → ED 08:12
DX: R45.851 Suicidal ideations (principal); F32.9 Major depressive disorder, single episode, unspecified; K21.9 Gastro-esophageal reflux disease without esophagitis; F17.200 Nicotine dependence, unspecified, uncomplicated
CPT/HCPCS: 36415; 71046; 80048; 80307; 81001; 85007; 85025; 93005; 93010; 99285; G0480; 80320

== ENCOUNTER 2017-09-12 16:39 | Emergency (ER) | payer MEDICARE ==
[2017-09-12 17:05] VITALS: BP 123/72
[2017-09-12] MEDS ORDERED: NORCO 5/325 PO ONE (17:08)
--- NOTE | 2017-09-12 18:09 | Emergency Department Report ---
HPI - General Chief Complaint: Extremity Injury, Upper Time Seen by Provider: 09/12/17 17:21 - HPI HPI: 62-year-old female presents to the emergency department with a complaint of left wrist pain after she tripped and tried to brace her fall with outstretched hands/arms. She presents with left wrist pain, left wrist swelling. She has a history of GERD, bipolar disorder, hypothyroidism. She did not take anything for her symptoms prior to presentation. Patient is right- hand dominant. ED Past Medical Hx - Past Medical History Hx Pulmonary Embolism: Yes Hx GERD: Yes Hx Psychiatric Treatment: Yes (Bipolar) Additional medical history: hypothyroid, hyperlipidemia, esophagus problems, ETOH abuse and in recovery - Surgical History Past Surgical History?: Yes Additional Surgical History: back, right hip, right arm, brain - Social History Smoking Status: Never Smoker Substance Use Type: None - Medications Home Medications: Home Medications Medication Instructions Recorded Confirmed Last Taken Type Ondansetron [Zofran Odt] 4 mg PO Q8HR PRN #20 tab.rapdis 03/25/17 04/28/17 Unknown Rx Butalb/Acetamin/Caff 50-325-40 2 tab PO Q8HR PRN #20 tablet 04/26/17 04/28/17 Unknown Rx [Fioricet] Ciprofloxacin HCl [Ciprofloxacin 500 mg PO BID #14 tablet 04/26/17 04/28/17 Unknown Rx TAB] Gentamicin 0.3% Ophth Soln 2 drops OD Q4H #1 bottle 04/26/17 04/28/17 Unknown Rx [Gentamicin 0.3%] Promethazine [Phenergan TAB] 25 mg PO Q6HR PRN #20 tab 04/26/17 04/28/17 Unknown Rx HYDROcodone/APAP 5-325 [[place] 1 each PO Q8H PRN #10 tablet 09/12/17 Unknown Rx 5/325] ED Review of Systems ROS: Stated complaint: LEFT WRIST PAIN Other details as noted in HPI Comment: All other systems reviewed and negative Constitutional: denies: chills, fever Eyes: denies: eye pain, eye discharge, vision change ENT: denies: ear pain, throat pain Respiratory: denies: cough, shortness of breath, wheezing Cardiovascular: denies: chest pain, palpitations Gastrointestinal: denies: abdominal pain, nausea, diarrhea Genitourinary: denies: urgency, dysuria, discharge Musculoskeletal: joint swelling, arthralgia Skin: denies: rash, lesions Neurological: denies: headache, weakness, paresthesias Physical Exam - Physical Exam Vital Signs: Vital Signs 09/12/17 17:01 Temperature 98.3 F Pulse Rate 90 Respiratory 16 Rate Blood Pressure 123/72 O2 Sat by Pulse 93 Oximetry Physical Exam: GENERAL: patient is well-developed well-nourished. HENT: Normocephalic. Atraumatic. Patient has moist mucous membranes. EYES: Extraocular motions are intact. Pupils equal reactive to light bilaterally. NECK: Supple. Trachea is midline. CHEST/LUNGS: Clear to auscultation. There is no respiratory distress noted. HEART/CARDIOVASCULAR: Regular. There is no tachycardia. There is no murmur. ABDOMEN: There is no abdominal distention. SKIN: Skin is warm and dry. NEURO: The patient is awake, alert, and oriented. The patient is cooperative. The patient has no focal neurologic deficits. The patient has normal speech. MUSCULOSKELETAL: There is tenderness to palpation to the left wrist. There is some dorsal swelling with suspicion for fracture. Refill less than 2 seconds. Radial pulses +2 over 4 to the affected left upper extremity. Decreased range of motion of the hand and wrist secondary to discomfort. ED Course Vital Signs 09/12/17 17:01 Temperature 98.3 F Pulse Rate 90 Respiratory 16 Rate Blood Pressure 123/72 O2 Sat by Pulse 93 Oximetry ED Medical Decision Making - Radiology Data Radiology results: image reviewed interpreted by me: X-ray of the left forearm and wrist shows a distal radial fracture with impaction type injury. There also appears to be an ulnar styloid fracture and distal ulna fracture. - Medical Decision Making Patient had a slip and fall with outstretched hands that caused a fracture to the distal forearm and wrist. It looks to be a 2 bone fracture with some distal radial impaction. There is no significant displacement or angulation or dislocation. She was placed in a volar splint for stabilization. She was neurovascularly intact both before and after the splint and with this injury. She was given referrals for orthopedists and encouraged to follow-up with the next few days. She will also return to the emergency Department with any worsening of her symptoms or any acute distress. I am aware of the patient having a history of remote and previous alcohol abuse and dependence and that she is in an ongoing recovery. I spoke to the patient regarding her injury and wanting to treat her pain. The patient says that she has no addiction to narcotics and has broken her hand in the past and was able to appropriately treat her injury with pain medication without relapsing into any problems with alcohol. On top of that, the patient also stays at a personal halfway where the medications are administered to her based on the prescriptions. - Differential Diagnosis fracture, dislocation, contusion, sprain Critical Care Time: No Critical care attestation.: If time is entered above; I have spent that time in minutes in the direct care of this critically ill patient, excluding procedure time. ED Disposition Clinical Impression: Left wrist fracture Qualifiers: Encounter type: initial encounter Fracture type: closed Qualified Code(s): S62.102A - Fracture of unspecified carpal bone, left wrist, initial encounter for closed fracture Distal radius fracture, left Qualifiers: Encounter type: initial encounter Fracture type: closed Fracture morphology: unspecified fracture morphology Qualified Code(s): S52.502A - Unspecified fracture of the lower end of left radius, initial encounter for closed fracture Distal end of ulna fracture, closed Qualifiers: Encounter type: initial encounter Fracture morphology: unspecified fracture morphology Laterality: left Qualified Code(s): S52.602A - Unspecified fracture of lower end of left ulna, initial encounter for closed fracture Disposition: DC-01 TO HOME OR SELFCARE Is pt being admited?: No Condition: Stable Instructions: Wrist Fracture in Adults (ED) Additional Instructions: Please follow up with an orthopedist in the next few days. I have given you a referral for 2 different orthopedic groups in the area. Return to the emergency Department with any worsening of your symptoms, numbness or tingling of your fingers, color change in the fingers, or any acute distress. You have been prescribed a medication that is sedating and therefore should not be taken prior to driving, working, and responsible for children and in no way should be mixed with alcohol of any quantity. Keep the splint on until follow-up with the orthopedist. Prescriptions: HYDROcodone/APAP 5-325 [[place] 5/325] 1 each PO Q8H PRN #10 tablet PRN Reason: Pain Referrals: DANUTA PYLE MD [Staff Physician] - [facility] [Provider Group] - [facility] Time of Disposition: 18:11
--- NOTE | 2017-09-12 18:50 | XRay Report ---
FINAL REPORT EXAM: XR FOREARM LT HISTORY: arm injury TECHNIQUE: Two views left forearm and two views left wrist Comparison: None FINDINGS: Global osteopenia. There is a crush type distal left radial metaphyseal fracture extending into the radiocarpal space. There disruption of the distal radial ulnar joint. There is an ulnar styloid avulsion. The avulsed fragment measures 6 millimeters. Radiocarpal space is unremarkable. No definite carpal fracture is identified with limited assessment two view series. Lateral wrist film demonstrates soft tissue swelling and mild dorsal distal radial ulnar cortical displacement but no significant volar or dorsal angulation or subluxation. There is an old healed left 3rd metacarpal shaft fracture with mild cortical offset. Incompletely assessed but no definite proximal forearm disruption/fracture or dislocation IMPRESSION: Crush-type distal left radial metaphyseal fracture extending into the radiocarpal space. Disruption of the distal radial ulnar joint. 6 millimeter ulnar styloid avulsion. Global osteopenia. Old healed left 3rd metacarpal shaft fracture. No definite proximal forearm/elbow abnormality.
--- NOTE | 2017-09-12 18:51 | XRay Report ---
FINAL REPORT EXAM: XR WRIST 2V LT HISTORY: wrist injury TECHNIQUE: Two views left wrist Comparison: None FINDINGS: Global osteopenia. There is a crush type distal left radial metaphyseal fracture extending into the radiocarpal space. There disruption of the distal radial ulnar joint. There is an ulnar styloid avulsion. The avulsed fragment measures 6 millimeters. Radiocarpal space is unremarkable. No definite carpal fracture is identified with limited assessment two view series. Lateral wrist film demonstrates soft tissue swelling and mild dorsal distal radial ulnar cortical displacement but no significant volar or dorsal angulation or subluxation. There is an old healed left 3rd metacarpal shaft fracture.. IMPRESSION: Crush-type distal radial metaphyseal fracture extending into the radiocarpal space with disruption of the distal radial ulnar joint and ulnar styloid avulsion. Carpal arcs are incompletely assessed as there is only two view series and the lateral is oblique. Recommend completion series when able. Old healed left 3rd metacarpal shaft fracture.
== END 2017-09-12 18:19 | disposition home or self-care (01) ==
LOC: ED 16:39
DX: S62.102A Fracture of unspecified carpal bone, left wrist, initial encounter for closed fracture (principal); S52.502A Unspecified fracture of the lower end of left radius, initial encounter for closed fracture; S52.602A Unspecified fracture of lower end of left ulna, initial encounter for closed fracture; K21.9 Gastro-esophageal reflux disease without esophagitis; W18.30XA Fall on same level, unspecified, initial encounter; Y93.89 Activity, other specified; Y92.89 Other specified places as the place of occurrence of the external cause; Y99.8 Other external cause status